=== PATIENT | male | born 1975 | race Caucasian/White ===

== ENCOUNTER 2018-05-10 13:59 | Emergency (ER) | payer MEDICAID, SELFPAY ==
[2018-05-10] VITALS (14 sets, daily range): BP systolic 117–129; BP diastolic 79–84; PULSE 60–69; RESP 12–20; TEMP 37.3; O2SAT 93–95
--- NOTE | 2018-05-10 14:17 | ED.GENADUL ---
Disposition Clinical Impression: Chest pain Disposition: AGAINST MEDICAL ADVICE Condition: Good Instructions: Chest Pain (ED) Additional Instructions: If you notice any worsening of your symptoms, or any new symptoms such as vomiting, diarrhea, fever, chills, shortness of breath, chest pain, numbness, weakness, or fainting , please return immediately to the emergency department for reevaluation. Please follow up with your primary care provider as soon as possible for reassessment and reevaluation. As always, it was a pleasure participating in your medical care today. Referrals: Wendy Raza [Primary Care Provider] - Medical Decision Making - Medical Decision Making This is a pleasant 42-year-old male who presents for evaluation of 4 seconds of chest pain that occurred 4 hours prior to arrival. He states that he has had symptoms like this in the distant past that was associated with stress. He states that he has been under multiple stressors as of late. He denies any cardiac risk factors after a thorough listing of potential risk factors, and additionally he denies any current pleuritic components, trauma, or other complaints. It is been 4 hours since the initial event, in the event was nonexertional, and sounds extremely noncardiac. His vital signs are normal, EKG is normal. We will get one troponin, and reevaluate. The patient is refusing chest x-ray as he does not feel like I need it right now. I discussed the risks and benefits of an incomplete workup and the patient understands. EKG 814: 10 Rate 66, normal sinus rhythm, normal intervals no ST elevations or depressions no T-wave inversions except for in lead III. No other abnormalities The patient has refused labs when lab came to draw for him. He still has no chest pain. His EKG is normal. His vital signs are normal. He states that I do not think they need any lab work at this time. I discussed with him how I did not think this is appropriate as we could not fully evaluate him for potential cardiac etiology in spite of a low risk, the patient states that he understands. Patient states that he would like to go home and work on his relaxation techniques. The patient is able to speak clearly. There is no demonstration of any slurring of speech. There is evidence of clear decision making capacity. Patient is able to ambulate well without any difficulty. There are no signs of ataxia or stumbling motions. Patient is of a appropriate age to make decisions. The patient is of sound mind, appears clinically sober, and has capacity to make decisions by my clinical exam. We have provided options for treatment and discussed the risks and benefits of these options and refusing these options, including and disability specific to the patient's pathology. Patient is able to discuss the risks and benefits and alternatives of treatment and refusing treatment. We have tried to involve the patient's family or support group that was present here or by contacting them on the phone. The patient chooses to leave before evaluation and treatment is complete AGAINST MEDICAL ADVICE. Diagnosis chest pain, precordial catch syndrome History of Present Illness - General Chief complaint: Chest Pain Stated complaint: HIGH BP Time Seen by Provider: 05/10/18 14:17 - History of Present Illness Initial comments: Is a 42-year-old male with no past medical history who states he takes no medications has had no surgeries, and does not smoke drink or have IV drugs. He presents today for evaluation of chest pain. Patient states that at 10 PM which was 4 hours prior to arrival the patient had a 4 second episode of chest pressure that radiated into his neck, and into his left shoulder. He describes it as a pressure-like sensation that was not sharp, tearing, or otherwise painful. After the 4 seconds it completely resolved on its own. It was while he was sitting, and writing, and nonexertional. He did have one cough but had no other pleuritic or chest pain symptoms. He denies any vision changes headache, continued arm or neck pain, nausea, vomiting, diarrhea. He denies any hemoptysis. After the patient's symptoms resolved he had no return of symptomatology. He has been doing well since then. He comes in now with a stated purpose of stress medication. Patient has no other complaints at this time. Denies PE risk factors such as recent long car rides, immobilization, recent surgery, prior history of DVT or PE, family history of PE or DVT, morbid obesity, exogenous estrogen and smoking, hemoptysis, history of cancer. He denies a history of smoking, family history of cardiac disease. Patient states that he has had these symptoms in the past, it is usually associated with stress. 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 He states that often times yoga and meditation help, however he has not been doing this since he left [place]. He has no other complaints at this time. - Related Data Unknown [No Known Home Meds] 05/10/18 Allergies Allergy/AdvReac Type Severity Reaction Status Date / Time No Known Allergies Allergy Unverified 05/10/18 14:12 Review of Systems Other: 10 point review of systems was performed, pertinent positives and negatives are noted in the history of present illness. General Exam - Other Other exam information: 1.Const: Well-nourished, Well-developed, appearing stated age 2.Eyes: PERRL, no conjunctival injection, and symmetrical lids. 3.ENT: Atraumatic external nose and ears. Moist MM. Neck: Symmetric, trachea midline, No thyromegaly. 4.CVS: +S1/S2, No murmurs or gallops. Peripheral pulses 2+ and equal in all extremities. Brisk capillary refill in all extremities. No carotid bruits. 5.RESP: Unlabored respiratory effort. Clear to auscultation bilaterally. No wheezes rales or rhonchi. No pain on palpation. Normal movement. 6.GI: Soft, Nontender/Nondistended, No hepatosplenomegaly. No guarding or rebound. 7.MSK: Normocephalic/Atraumatic, Extremities w/o deformity or ttp No cyanosis or clubbing, Normal movement of all extremities. No calf tenderness. 8.Skin: Warm, Dry. No rashes or lesions. 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 Sensation grossly intact, no focal neurologic deficits. 10.Psych: (AAO) x3. Appropriate mood and affect Course Vital Signs - 24 hr 05/10/18 05/10/18 14:09 14:13 Temperature 37.3 C Pulse 60 Respiratory 19 12 Rate Blood Pressure 117/84 Pulse Oximetry 95
--- NOTE | 2018-05-10 15:23 | NUR.NOTE ---
Nursing Note: Patient refused to have his labs drawn an have his suggested chest xray. Patient was cooperative but wasn't willing to receive any education on the risk factors.
--- NOTE | 2018-05-11 09:22 | PDOC.ERCMPRO ---
Care Management Progress Note 05/11-Bert left the emergency department AMA. Bert presented to the ED with Chest Pain (Please see provider note). This CM reviewed the chart and Bert does not have a telephone number listed so no contact was made.
== END 2018-05-10 16:30 | disposition left against medical advice (07) ==
PROVIDERS: Emergency Provider Student in an Organized Health Care Education/Training Program; PCP Family Medicine
DX: R07.9 Chest pain, unspecified (principal); Z53.29 Procedure and treatment not carried out because of patient's decision for other reasons
CPT/HCPCS: 80053; 93005; 99283; 84484; 85025; 93010

== ENCOUNTER 2018-08-20 10:22 | Outpatient (CLI) | payer MEDICAID, SELFPAY ==
--- NOTE | 2018-08-20 14:49 | DI.RAD_ITS ---
SYMPTOM/DIAGNOSIS: LOW BACK PAIN, ACUTE M54.5 LUMBOSACRAL SPINE: 08/20 Five views were obtained. There is mild right convex lumbar scoliosis. The intervertebral disc spaces are well maintained. Mild hypertrophic spurring of the facet joints and to a lesser degree the vertebral end plates noted. There is no evidence of spondylolysis or spondylolisthesis. CONCLUSION: Mild degenerative changes in the lumbar spine. There is a small osseous radiodensity projected adjacent to the anterior superior end plate of L3 vertebral body. This was not present on previous examination of 07/23/09. This is unlikely to represent an acute fracture but acute fracture is not absolutely excluded. If clinically indicated additional evaluation with CT could be considered.
== END 2018-08-20 10:42 ==
PROVIDERS: PCP Family Medicine; Visit Provider Nurse Practitioner Family
DX: M54.5 Low back pain (principal); M47.816 Spondylosis without myelopathy or radiculopathy, lumbar region
CPT/HCPCS: 72110